=== PATIENT | male | born 1995 | race Caucasian/White ===

== ENCOUNTER → 2017-03-31 | Outpatient (CLI) | payer BC ==
--- NOTE | 2017-03-31 19:05 | Diagnostic Imaging Report ---
PROCEDURE: MR imaging cervical spine without contrast. TECHNIQUE: Multiplanar, multisequence MR imaging of the cervical spine was performed without contrast. INDICATION: Neck pain. FINDINGS: There is straightening of the cervical curvature. The alignment of the posterior spinal line otherwise is satisfactory. Alignment at the facet joints is satisfactory. No widening of the predental space. The vertebral body heights are preserved. There is minimal disc desiccation at the upper and mid the cervical spine levels. No significant marrow signal abnormality. The spinal cord has normal caliber and contour and signal. The foramen magnum and upper cervical canal are widely patent. C2/3: No disc herniation, and no spinal canal or foraminal stenosis. C3/4: There is a minimal disc spur complex with no spinal canal or foraminal stenosis. C4/5: There is no disc herniation, and no spinal canal or foraminal stenosis. C5/6: No disc herniation, no spinal canal or foraminal stenosis. There is mild facet hypertrophy bilaterally. C6/7: No disc herniation, and no spinal canal or foraminal stenosis. C7/T1: Unremarkable. IMPRESSION: 1. Minimal degenerative changes. No spinal canal or foraminal stenosis at any level. 2. Straightening of the cervical lordosis could be positional or related to muscle spasm. Dictated by: Dictated on workstation # [id number]
== END ==
LOC: RAD 15:12
PROVIDERS: ATTEND Psychiatry & Neurology Neurology
DX: M40.40 Postural lordosis, site unspecified (principal)
CPT/HCPCS: 72141

== ENCOUNTER → 2017-07-15 | Outpatient (CLI) | payer BC, OTHER ==
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
== END ==
LOC: RAD 10:18
PROVIDERS: ATTEND Family Medicine
DX: M46.87 Other specified inflammatory spondylopathies, lumbosacral region (principal); Q76.49 Other congenital malformations of spine, not associated with scoliosis
CPT/HCPCS: 72148

== ENCOUNTER → 2017-08-05 | Outpatient (CLI) | payer OTHER ==
[2017-08-05 13:36] LABS: BASOPHILS # (AUTO) 0.1 10^3/uL (0.0-0.1); BASOPHILS % (AUTO) 1 % (0-10); EOSINOPHILS # (AUTO) 0.3 10^3/uL (0.0-0.3); EOSINOPHILS % (AUTO) 3 % (0-10); HEMATOCRIT 44 % (40-54); HEMOGLOBIN 15.2 G/DL (13.3-17.7); LYMPHOCYTES # (AUTO) 2.8 X 10^3 (1.0-4.0); LYMPHOCYTES % (AUTO) 37 % (12-44); MEAN CORPUSCULAR HEMOGLOBIN 28 PG (25-34); MEAN CORPUSCULAR HGB CONC 34 G/DL (32-36); MEAN CORPUSCULAR VOLUME 82 FL (80-99); MEAN PLATELET VOLUME 10.8 FL (7.4-10.4); MONOCYTES # (AUTO) 0.8 X 10^3 (0.0-1.0); MONOCYTES % (AUTO) 11 % (0-12); NEUTROPHILS # (AUTO) 3.6 X 10^3 (1.8-7.8); NEUTROPHILS % (AUTO) 48 % (42-75); PLATELET COUNT 308 10^3/uL (130-400); RED BLOOD COUNT 5.39 10^6/uL (4.35-5.85); RED CELL DISTRIBUTION WIDTH 12.7 % (10.0-14.5); WHITE BLOOD COUNT 7.6 10^3/uL (4.3-11.0)
== END ==
LOC: LAB 13:20
PROVIDERS: ATTEND Family Medicine
DX: R51 Headache (principal); M54.5 Low back pain
CPT/HCPCS: 36415; 85025

== ENCOUNTER → 2017-09-08 | Outpatient (CLI) | payer OTHER ==
--- NOTE | 2017-09-08 12:52 | Diagnostic Imaging Report ---
PROCEDURE: MR imaging cervical spine without contrast. TECHNIQUE: Multiplanar, multisequence MR imaging of the cervical spine was performed without contrast. INDICATION: Frequent headaches. FINDINGS: The previous MRI cervical spine exam performed on 03/31/17 noted only minimal degenerative changes. There was no evidence for spinal stenosis or nerve root encroachment at any level. As on the prior exam, there is slight straightening of the cervical spine on the T2 sagittal images. This may be secondary to muscle spasm and/or positioning. The vertebral body heights are within normal limits and the intervertebral spaces are well maintained. The thecal sac is generous and there is still no evidence for spinal stenosis or nerve root encroachment at any level. There is no abnormal signal arising from the cord or the vertebral bodies to indicate an acute abnormality. There is no sign of a paraspinal mass. The expected carotid and vertebral flow voids are evident bilaterally. IMPRESSION: 1. When compared to the previous study, there does not appear to have been any significant change. There is still no evidence for spinal stenosis or nerve root encroachment at any level. 2. There is no abnormal signal arising from the cord or the vertebral bodies to indicate an acute abnormality. Dictated by: Dictated on workstation # [id number]
== END ==
LOC: RAD 08:51
PROVIDERS: ATTEND Family Medicine
DX: R51 Headache (principal)
CPT/HCPCS: 72141

== ENCOUNTER → 2018-08-02 | Outpatient (CLI) | payer OTHER | LOC: LAB 11:26 | PROVIDERS: ATTEND Family Medicine | DX: R51 Headache (principal); R53.83 Other fatigue; E34.9 Endocrine disorder, unspecified; Z79.899 Other long term (current) drug therapy | CPT/HCPCS: 36415; 82306; 82627; 82670; 83003; 84144; 85610; 85613; 85705; 85730; 86146; 86147 ==

== ENCOUNTER → 2018-08-23 | Outpatient (CLI) | payer OTHER ==
[2018-08-23 10:32] LABS: FREE T4 (FREE THYROXINE) 1.05 NG/DL (0.70-1.48)
== END ==
LOC: LAB 09:36
PROVIDERS: ATTEND Internal Medicine Endocrinology, Diabetes & Metabolism
DX: R79.89 Other specified abnormal findings of blood chemistry (principal); R94.7 Abnormal results of other endocrine function studies; R63.5 Abnormal weight gain; E24.9 Cushing's syndrome, unspecified
CPT/HCPCS: 36415; 80299; 82533; 83036; 84402; 84403; 84439; 84443; 84445; 84481; 86376; 86800

== ENCOUNTER → 2019-11-22 | Outpatient (CLI) | payer BC, OTHER ==
--- NOTE | 2019-11-22 13:44 | Diagnostic Imaging Report ---
PROCEDURE: MR angiography of the brain without the use of contrast. TECHNIQUE: 3D [id number] non contrast enhanced MR angiography of the head was performed. A source data was reformatted into rotating MIP projections. INDICATION: Daily headaches for 7 years. COMPARISON: None. FINDINGS: Noncontrast [id number] intracranial MRA demonstrates basilar, bilateral intracranial, internal carotid, visualized vertebral, anterior cerebral, middle cerebral and posterior cerebral arteries are widely patent without evidence of aneurysm or dissection. The anterior and bilateral posterior communicating arteries are patent. IMPRESSION: Normal intracranial MRA. Dictated by: Dictated on workstation # [id number]
--- NOTE | 2019-11-22 13:50 | Diagnostic Imaging Report ---
PROCEDURE: MR angiography of the brain without the use of contrast. TECHNIQUE: 3D [id number] non contrast enhanced MR angiography of the head was performed. A source data was reformatted into rotating MIP projections. INDICATION: Daily headaches for 7 years. COMPARISON: MRA brain also performed today. FINDINGS: The dural venous sinuses are widely patent and without flow voids. Dominant right dural venous sinuses. The internal cerebral veins appear patent. IMPRESSION: Normal intracranial MRV. Dictated by: Dictated on workstation # [id number]
== END ==
LOC: RAD 12:41
DX: G43.711 Chronic migraine without aura, intractable, with status migrainosus (principal); G44.52 New daily persistent headache (NDPH)
CPT/HCPCS: 70544